=== PATIENT | female | born 1980 | race Caucasian/White ===

== ENCOUNTER 2021-02-01 21:59 | Emergency (ER) | payer OTHER ==
[~2021-02-01] VITALS: Ht 162.6 cm; Wt 67.0 kg
[2021-02-01] MEDS ORDERED: CELEXA20 MG PO (22:23)
[2021-02-01] MEDS ORDERED: BP MED (22:26)
[2021-02-01 23:06] LABS: HEMATOCRIT 38.3 % (37.0-47.0); HEMOGLOBIN 12.6 g/dl (12.0-16.0); IMMATURE GRANULOCYTES 0.2 % (0.0-5.0); MEAN CELL VOLUME 90.1 fL CALC (80.0-100.0); MEAN CORPUSCULAR HGB 29.6 pG CALC (26.0-32.0); MEAN CORPUSCULAR HGB CONC 32.9 g/dL CAL (32.0-36.0); NEUT# 2.26 thou/uL (2.00-7.15); RED BLOOD COUNT 4.25 mill/uL (4.20-5.60); RED CELL DISTRI WIDTH 11.9 % (11.5-15.5)
[2021-02-02 00:25] VITALS: BP 112/60
== END 2021-02-02 00:25 | disposition home or self-care (01) | DRG 179 ==
LOC: ED 21:59
PROVIDERS: Family Medicine
DX: U07.1 COVID-19 (principal); I10 Essential (primary) hypertension; F41.9 Anxiety disorder, unspecified; F17.210 Nicotine dependence, cigarettes, uncomplicated

== ENCOUNTER 2022-02-19 10:30 | Emergency (ER) | payer OTHER ==
[~2022-02-19] VITALS: Ht 162.6 cm; Wt 68.0 kg
[~2022-02-19 10:30] MED LIST: BP MED; CELEXA20 MG PO
[2022-02-19 10:37] VITALS: BP 103/63
[2022-02-19 11:00] VITALS: BP 108/52
[2022-02-19 11:30] VITALS: BP 111/65
[2022-02-19 12:00] VITALS: BP 106/64
== END 2022-02-19 12:12 | disposition home or self-care (01) | DRG 556 ==
LOC: ED 10:30
DX: M25.562 Pain in left knee (principal); I10 Essential (primary) hypertension; F41.9 Anxiety disorder, unspecified; F17.210 Nicotine dependence, cigarettes, uncomplicated